=== PATIENT | male | born 1975 | race Caucasian/White ===

== ENCOUNTER 2016-09-22 18:11 | Emergency (ER) | payer SELFPAY ==
--- NOTE | ~2016-09-22 | CT4 ---
[facility] A Service of [facility] & [facility] / [facility] RADIOLOGY TEXT RESULTS PATIENT: AISLINN QURESHI LOCATION: SED : 79 UNIT #: [id number] AGE: [address]: BRIAN DRAKE SEX: M ORDER DR: [id number] [place] [id number] MR#: [id number] Acc #: [id number] NAME: AISLINN QURESHI : 1975 SEX: M STUDY DATE/TIME: 09/22/2016 19:03 UNIT: SED ROOM: STUDY DESCRIPTION: CT Abd and Pelv Wo Cont Attending Physician: Brian Drake Ordering Physician: Brian Drake Primary Care Physician: Lauryn Primary Care Physician MEDICAL IMAGING REPORT This report is preliminary unless electronic signature is present. EXAM Abdomen and pelvis CT without contrast. HISTORY Abdominal pain right lower side since 17:00 today with nausea. Patient would not stop moving. Best images possible per technologist. TECHNIQUE CT abdomen and pelvis obtained in the axial plane followed by sagittal and coronal reconstructed images. This CT exam was performed with one or more of the following radiation dose reduction techniques: automatic exposure control, adjustment of mA and/or kV according to patient size, and iterative reconstruction. There is significant limitation of the exam by patient motion and additionally the study was performed as a urinary tract stone protocol so that there is no IV or oral contrast media and this also somewhat limits the exam. COMPARISON There is an abdomen CT from 11/12/2009, and a pelvis CT from 11/12/2009. FINDINGS The lung bases shows some parenchymal scarring, emphysematous change and likely hyperinflation. Chest x-ray correlation would be most helpful. CT ABDOMEN: Suspect a small hiatal hernia. Noncontrast liver, gallbladder, spleen grossly unremarkable. Adrenal glands grossly unremarkable. Noncontrast pancreas grossly unremarkable. The left kidney shows no convincing evidence for intrarenal calculus or hydronephrosis. Right kidney shows no evidence for intrarenal calculus but there does appear to be moderate to severe hydronephrosis and probably hydroureter. Because of the motion, it is difficult to evaluate for obstructing stone. There is a small density seen in the right hemipelvis possibly in the distal right ureter to the ureterovesical junction region about 2 mm [facility] A Service of [facility] & [facility] / [facility] RADIOLOGY TEXT RESULTS PATIENT: AISLINN QURESHI LOCATION: SED : [birth year] UNIT #: [id number] AGE: [address]: BRIAN DRAKE SEX: M ORDER DR: evelyne. This is nonspecific, but it is possibly a calculus, accounting for the hydroureteronephrosis on the right. Alternatively, it could simply be a phlebolith and some other etiology of the obstruction is possible. Patient's bladder is probably decompressed. There is a large amount of stool and gas in the colon and moderate colonic distension. The study does not assess the status of the appendix or bowel. There are vascular calcifications in the abdominal aorta. There is no gross aneurysm appreciated. There is no gross free air allowing for the motion. There is a lytic lesion in the left iliac bone also present in 2009. It is nonspecific but longstanding presence would favor a benign process. Maximum dimension is about 2.7 cm currently where it was 2.3 cm previously. Given the subtle interval increase in size I would recommend followup imaging with a whole-body bone scan to evaluate for possible abnormal scintigraphic activity. IMPRESSION 1. Study significantly limited by patient motion during the study as well as by the lack of IV and oral contrast media in this relatively thin patient. 2. There does appear to be [id number] right-sided hydroureteronephrosis new from study of 2009. There might be a 2 mm calculus in the distal right ureter region but given the amount of motion on the study this cannot be confidently diagnosed. Please correlate for clinical evidence of urinary tract calculus disease. If there is concern for appendicitis I would recommend the patient be further evaluated with a study with both IV and oral contrast media. The appendix and bowel was poorly evaluated on this study. There is a large amount of colonic gas and stool. There is no gross free air appreciated. Urinary bladder is probably decompressed. 3. There is a lytic lesion in the left iliac bone medially. It was present in 2009. I suspect it is a slow-growing benign process but sine there does appear to be some interval increase in size since 2009, I would recommend correlation with a whole-body bone scan to evaluate for possible abnormal scintigraphic activity. If the lesion has been previously characterized elsewhere, this would be helpful as well. 4. Partly seen likely some hyperinflation and emphysematous changes at the lung bases. STAT * RESULT Dictated by... Nedra Sanchez M.D. THIS IS AN ELECTRONICALLY VERIFIED REPORT Nedra Sanchez M.D. at 09/22/2016 10:08 PM [facility] A Service of [facility] & [facility] / [facility] RADIOLOGY TEXT RESULTS PATIENT: AISLINN QURESHI LOCATION: [facility] #: [id number] : [birth year] UNIT #: [id number] AGE: [address]: BRIAN DRAKE SEX: M ORDER DR: Dafne TD: 09/22/2016 20:21 JOB #: [id number] MEDICAL IMAGING REPORT Page 1 of 1
[~2016-09-22 18:11] MED LIST: CLINDAMYCIN HC300 MG PO; NO MEDICATIONS; PERCOCET 5-3251 TAB PO
[2016-09-22 19:19] LABS: BASOPHIL# 0.1 X10e3 (0-0.3); BASOPHIL% 0.5 % (0-2.5); EOSINOPHIL# 0.1 X10e3 (0-0.7); EOSINOPHIL% 1.4 % (0.0-7.0); HEMATOCRIT 40.8 % (38.0-50.0); HEMOGLOBIN 13.7 gm/dL (13.0-16.0); LYMPHOCYTE# 1.2 X10e3 (1.0-3.5); LYMPHOCYTE% 11.9 % (17.0-45.0); MEAN CELL VOLUME 88.4 FL (83-96); MEAN CORPUSCULAR HEMOGLOBIN 29.7 PG (28-34); MEAN CORPUSCULAR HGB CONC 33.6 g/dL (30-36); MEAN PLATELET VOLUME 6.8 FL (6.5-11.5); MONOCYTE# 0.7 X10e3 (0-1.0); MONOCYTE% 6.7 % (3.0-12.0); NEUTROPHIL# 7.8 X10e3 (1.5-7.1); NEUTROPHIL% 79.5 % (40-75); PLATELET COUNT 287 X10e3 (140-420); RED BLOOD COUNT 4.62 X10e (3.90-5.60); RED CELL DISTRIBUTION WIDTH 14.7 % (11.0-15.5); WHITE BLOOD COUNT 9.9 X10e3 (4.0-10.5)
[2016-09-22 19:23] LABS: DIFF IND NO
[2016-09-22 19:36] LABS: ALBUMIN SERUM 4.3 g/dL (3.5-5.0); BILIRUBIN,TOTAL 0.6 mg/dL (0.2-2.0); BUN/CREATININE RATIO 9.09; CALCIUM SERUM 9.1 mg/dL (8.4-10.2); CREATININE SERUM 1.1 mg/dL (0.6-1.4); GLOM FILT RATE Estimated 84.1 mL/min (>60); POTASSIUM 3.2 mmol/L (3.5-5.1); PROTEIN TOTAL SERUM 7.1 g/dL (6.0-8.3)
== END 2016-09-22 21:01 | disposition home or self-care (01) ==
LOC: SED 18:11
PROVIDERS: Physician Assistant
DX: R10.9 Unspecified abdominal pain (principal); R11.0 Nausea; F17.210 Nicotine dependence, cigarettes, uncomplicated; Z88.0 Allergy status to penicillin; Z98.890 Other specified postprocedural states
CPT/HCPCS: 36415; 74176; 80053; 85025; 96361; 96374; 96375; 99284; J1885; J2405